=== PATIENT | male | born 1975 | race Caucasian/White ===

== ENCOUNTER 2017-08-30 02:30 | Emergency (ER) | payer SELFPAY ==
[~2017-08-30] VITALS: Ht 157.5 cm; Wt 66.0 kg
[2017-08-30] MEDS ORDERED: MORPHINE SULFATE 10 MG/ML CPJ IM ONE (06:15)
[2017-08-30] MEDS ORDERED: TETANUS, DIPHTHERIA, PERTUSSIS VAC/PF 0.5ML (>7YR OLD) IM ONE (06:15)
[2017-08-30] MEDS ORDERED: KETOROLAC 30MG/ML VIAL IM ONE (06:15)
[2017-08-30] MEDS ORDERED: SODIUM CHLORIDE 0.9% 1,000 ML IV ONE (07:45)
[2017-08-30] MEDS ORDERED: MORPHINE SULFATE 4 MG/ML CPJ (NOT FOR IM USE) IV STA (07:45)
[2017-08-30] MEDS ORDERED: ONDANSETRON HCL 4MG/2ML VIAL IV STA (07:45)
[2017-08-30 08:11] LABS: BASOPHILS % 0.9 % (0.0-2.0); EOSINOPHILS % 0.6 % (0.0-5.0); HEMATOCRIT. 44.6 % (42.0-52.0); HEMOGLOBIN. 15.5 g/dL (14.0-18.0); LYMPHOCYTES % 17.3 % (20.0-50.0); MEAN CORPUSCULAR HEMOGLOBIN 32.6 pg (28.0-32.0); MEAN CORPUSCULAR VOLUME 93.7 fL (80.0-94.0); MEAN PLATELET VOLUME 9.1 fl (7.4-10.4); MONOCYTES % 4.4 % (2.0-8.0); NEUTROPHILS % 76.8 % (40.0-76.0); PLATELET 220 x1000/uL (130-400); RED BLOOD CELL COUNT 4.76 mill/uL (4.7-6.1); RED CELL DISTRIBUTION WIDTH 13.1 % (11.6-14.6)
[2017-08-30] MEDS ORDERED: CEFAZOLIN 1000MG PREMIX 50 ML IV ONE (08:15)
[2017-08-30 08:17] LABS: INR 1.1; PROTHROMBIN TIME 11.3 sec (9.4-11.6)
[2017-08-30 08:23] LABS: CARBON DIOXIDE 25 mEq/L (21-32); CHLORIDE 107 mEq/L (98-107)
[2017-08-30 10:50] VITALS: BP 147/81
== END 2017-08-30 11:17 | disposition short-term general hospital (02) ==
LOC: EDBD 02:30 → ER 02:30
DX: S02.81XA Fracture of other specified skull and facial bones, right side, initial encounter for closed fracture (principal); Y09 Assault by unspecified means; Y93.89 Activity, other specified; Y92.89 Other specified places as the place of occurrence of the external cause; Y99.8 Other external cause status
CPT/HCPCS: 12011; 36415; 70450; 70486; 80053; 83690; 85025; 85610; 90471; 90715; 96365; 96372; 96375; 99285; J0690; J1885; J2270; J2405; J7030; Z7610